=== PATIENT | male | born 1945 | race Caucasian/White ===

== ENCOUNTER → 2018-12-21 10:46 | Outpatient (CLI) | payer OTHER, SELFPAY ==
[2018-12-21 12:32] LABS: Alanine Aminotransferase 34 IU/L (21-72); Aspartate Aminotransferase 29 IU/L (17-59); Blood Urea Nitrogen 19 mg/dL (9-20); Carbon Dioxide 29 mmol/L (22-32); Chloride 97 mmol/L (98-107); Cholesterol 150 mg/dL (140-199); Estimated Glomerular Filt Rate > 60.0 mL/min (>60); Glucose 111 mg/dL (80-110); HDL Cholesterol 46 mg/dL (40-60); HEMOLYSIS < 15 (0-50); LDL Cholesterol Calculated 90 mg/dL (<100); Potassium 4.8 mmol/L (3.4-5.1); Sodium 136 mmol/L (137-145); Triglycerides 71 mg/dL (35-150)
[2018-12-21 12:59] LABS: Prostate Specific Antigen Scrn 0.729 ng/mL (0.1-4.0)
== END ==
PROVIDERS: PCP Internal Medicine; Visit Provider Internal Medicine
DX: I10 Essential (primary) hypertension (principal); Z12.5 Encounter for screening for malignant neoplasm of prostate; E78.5 Hyperlipidemia, unspecified
CPT/HCPCS: 36415; 80048; 80061; 84450; 84460; G0103

== ENCOUNTER → 2019-09-06 14:53 | Outpatient (CLI) | payer OTHER, SELFPAY ==
--- NOTE | 2019-09-06 | DI.ECHO.S_ITS ---
[place]---------+ [facility] +---------+ : : [address] : : : : [id number] : : : : Phone: [phone]+ Echocardiogram Report + + :Name: KY KERNS Study Date: 09/06/2019 Height: 70 in : :[facility] Weight: 172 lb : : Gender: Male BSA: 2.0 m2 : :: 1945 Age: 73 yrs BP: 138/76 mmHg: :Reason For Study: aortic ectasia : :Ordering Physician: Ulisses : :Jaya Guajardo Performed By: Cat Coates : :Referring: ULISSES GUAJARDO : + + Interpretation Summary The left ventricle is normal in size. The ejection fraction is estimated to be 65-70%. The right ventricle is normal size. The right ventricular systolic function is normal. There is a bioprosthetic aortic valve. The prosthetic aortic valve is well-seated. Ao V2 max: 284.5 cm/sec. Ao mean P.6 mmHg There is mild aortic regurgitation. There is mild tricuspid regurgitation. There is mild to moderate pulmonic regurgitation. Procedure: A two-dimensional transthoracic echocardiogram with color flow and Doppler was performed. The study quality was technically adequate. There is no prior echocardiogram noted for this patient. The patient was in sinus bradycardia with heart rates between 47-53 bpm during the exam. Left Ventricle: The left ventricle is normal in size. Proximal septal thickening is noted. There is no echo evidence for significant left ventricular outflow tract obstruction. There is no thrombus. The ejection fraction is estimated to be 65-70%. There are no focal wall motion abnormalities. MV E/A: 1.7 Med Peak E' Frank: 5.7 cm/sec E/E' med: 14.6. Right Ventricle: The right ventricle is normal size. The right ventricular systolic function is normal. Atria: Both atria are normal in size. The interatrial septum is intact with no evidence for an atrial septal defect. Mitral Valve: The mitral valve leaflets are mildly calcified. The mitral valve chordae are thickened and/or calcified. There is mild mitral annular calcification. There is mild mitral regurgitation. Aortic Valve: There is a bioprosthetic aortic valve. The prosthetic aortic valve is well-seated. Ao V2 max: 284.5 cm/sec. Ao mean P.6 mmHg. There is mild aortic regurgitation. Tricuspid Valve: Redundant tricuspid valve chordae seen. Tricuspid leaflets are thickened. There is mild tricuspid regurgitation. Pulmonary artery pressures cannot be estimated because of the lack of a measurable TR jet velocity. Pulmonic Valve: The pulmonic valve is not well seen, but is grossly normal. There is mild to moderate pulmonic regurgitation. Great Vessels: The aortic root is normal size. The ascending aorta is at the upper limits of normal in size. The ascending aorta is measuring 3.8cm. The IVC is of normal diameter and collapses greater than 50% with a sniff. This suggests a low right atrial pressure of 3 mm Hg. Pericardium/ Pleura There is no pericardial effusion. MMode/2D Measurements & Calculations LVIDd: 4.4 cm LVOT diam: 2.0 cm LVIDs: 2.9 cm Ao root diam: 3.5 cm FS: 34.5 % asc Aorta Diam: 3.8 cm EPSS: 0.43 cm Ao Arch Diam (Prox Trans): 3.2 cm IVSd: 0.97 cm LVPWd: 1.1 cm LV cr. diameter/BSA (cm/m^2): 2.2 LV sys. diameter/BSA (cm/m^2): 1.5 LA A2 area: 17.9 cm2 RA long axis: 4.8 cm LA A4 area: 18.0 cm2 RA area: 16.0 cm2 LA length (vol): 5.2 cm RA vol: 45.2 ml LA vol: 52.3 ml RA : 23.1 ml/m2 LA vol index: 26.7 ml/m2 IVC diam: 0.72 cm RVD1 (basal): 3.4 cm RVD2 (mid): 2.1 cm TAPSE: 1.5 cm Doppler Measurements & Calculations Ao V2 max: 284.5 cm/sec LVOT Max Frank: 88.6 cm/sec Ao V2 mean: 178.3 cm/sec LV V1 max P.1 mmHg Ao max P.4 mmHg LV V1 VTI: 23.2 cm Ao mean P.6 mmHg MINGO(I,D): 1.1 cm2 Ao V2 VTI: 64.2 cm MINGO(V,D): 0.95 cm2 sev ratio: 0.36 MINGO indexed to BSA (cm^2/m^2): 0.56 MV E max frank: 82.7 cm/sec TR max frank: 266.7 cm/sec MV A max frank: 49.9 cm/sec TR max P.5 mmHg MV E/A: 1.7 PA V2 max: 79.2 cm/sec Med Peak E' Frank: 5.7 cm/sec PA V2 mean: 56.1 cm/sec E/E' med: 14.6 PA mean P.4 mmHg Lat Peak E' Frank: 11.2 cm/sec PA pr(Accel): 48.5 mmHg E/E' lat: 7.4 E/e' average: 11.0 MV dec time: 0.22 sec MV P1/2t: 63.5 msec MV P1/2t max frank: 83.1 cm/sec SV(LVOT): 70.6 ml MVA(P1/2t): 3.5 cm2 Reading Physician:05:36 PM
== END ==
PROVIDERS: PCP Internal Medicine; Referring Provider Internal Medicine Cardiovascular Disease; Visit Provider Internal Medicine Cardiovascular Disease
DX: I08.3 Combined rheumatic disorders of mitral, aortic and tricuspid valves (principal); I77.810 Thoracic aortic ectasia; Z95.2 Presence of prosthetic heart valve
CPT/HCPCS: 93306

== ENCOUNTER → 2019-10-02 14:13 | Outpatient (CLI) | payer OTHER, SELFPAY ==
[2019-10-02 16:19] LABS: Blood Urea Nitrogen 16 mg/dL (9-20); Calcium 10.2 mg/dL (8.4-10.2); Carbon Dioxide 29 mmol/L (22-32); Chloride 100 mmol/L (98-107); Estimated Glomerular Filt Rate > 60.0 mL/min (>60); Glucose 101 mg/dL (80-110); HEMOLYSIS < 15 (0-50); Potassium 4.8 mmol/L (3.4-5.1); Sodium 137 mmol/L (137-145)
== END ==
PROVIDERS: PCP Internal Medicine; Referring Provider Nurse Practitioner; Visit Provider Nurse Practitioner
DX: I10 Essential (primary) hypertension (principal)
CPT/HCPCS: 36415; 80048

== ENCOUNTER → 2020-01-10 10:07 | Outpatient (CLI) | payer OTHER, SELFPAY ==
[2020-01-10 10:40] LABS: Alanine Aminotransferase 26 IU/L (<50); Albumin 4.3 g/dL (3.5-5.0); Albumin Globulin Ratio 1.5 (1.0-2.8); Alkaline Phosphatase 55 U/L (38-126); Aspartate Aminotransferase 30 IU/L (17-59); Bilirubin Total 0.5 mg/dL (0.2-1.3); Blood Urea Nitrogen 19 mg/dL (9-20); Calcium 9.4 mg/dL (8.4-10.2); Carbon Dioxide 30 mmol/L (22-32); Chloride 100 mmol/L (98-107); Cholesterol 121 mg/dL (140-199); Estimated Glomerular Filt Rate > 60.0 mL/min (>60); Globulin 2.9 g/dL (1.7-4.1); Glucose 114 mg/dL (80-110); HDL Cholesterol 33 mg/dL (40-60); HEMOLYSIS < 15 (0-50); LDL Cholesterol Calculated 73 mg/dL (<100); Potassium 4.3 mmol/L (3.4-5.1); Sodium 137 mmol/L (137-145); Total Protein 7.2 g/dL (6.3-8.2); Triglycerides 77 mg/dL (35-150)
== END ==
PROVIDERS: PCP Internal Medicine; Referring Provider Nurse Practitioner; Visit Provider Nurse Practitioner
DX: I10 Essential (primary) hypertension (principal); E78.5 Hyperlipidemia, unspecified
CPT/HCPCS: 36415; 80053; 80061

== ENCOUNTER → 2020-03-09 12:10 | Outpatient (CLI) | payer OTHER, SELFPAY ==
[2020-03-10 10:54] LABS: COVID19 Sendout Not Detected (Not Detect)
== END ==
PROVIDERS: PCP Internal Medicine; Visit Provider Nurse Practitioner
DX: Z11.59 Encounter for screening for other viral diseases (principal)
CPT/HCPCS: 87635

== ENCOUNTER 2020-03-12 08:29 | Day surgery (SDC) | payer OTHER, SELFPAY ==
--- NOTE | 2020-03-12 | PATH_ITS ---
[facility] Accession Number: [id number] . 01 Material submitted: . PART A: colon - CECUM POLYP PART B: colon - SIGMOID POLYP . 02 Diagnosis: A. Cecum, Polyp, Biopsy: Sessile serrated adenoma. . B. Sigmoid Colon, Polyp, Biopsy: Tubular adenoma. [facility] 03/13/2020 1625 Local . 02 Electronically signed: . Caroline Vigil MD, Pathologist NPI- [id number] . 01 Gross description: . Part A: CECUM POLYP: Received in formalin are 2 fragment(s) of juárez, soft tissue measuring 0.3 x 0.3 x 0.3 cm to 0.7 x 0.6 x 0.3 cm submitted entirely in 1 cassette(s) Part B: SIGMOID POLYP: Received in formalin are 2 fragment(s) of juárez, soft tissue measuring 0.2 x 0.1 x 0.1 cm to 0.4 x 0.3 x 0.2 cm submitted entirely in 1 cassette(s) /EDDIE 03/13/2020 0128 Local . 02 Pathologist provided ICD-10: D12.0, D12.5 . 02 CPT . 909644, [id number] Performed at: 01 [facility] [address], [place], [place] [id number] MD Valente Amato MD Phone: [phone] Performed at: 02 [facility] [address] [place], [place] [id number] MD Caroline Vigil MD Phone: [phone]
[2020-03-12] MEDS: SODIUM CHLORIDE 0.9% 1,000 ML 42 ML IV (08:55)
[2020-03-12 08:56] VITALS: BP 175/79; PULSE 52; RESP 16; TEMP 36.5; O2SAT 99; BMI 23.4
--- NOTE | 2020-03-12 09:31 | PM.HP.1 ---
History of Present Illness History of Present Illness Date Patient Seen: 03/12/20 Time Patient Seen: 09:31 Chief complaint: SDC Narrative: First screening colonoscopy. Patient History Medical History (Updated 03/12/20 @ 08:33 by Kay Reeves RN) CAD (coronary artery disease) (Acute) GERD (gastroesophageal reflux disease) (Acute) HTN (hypertension) (Acute) Osteoarthritis (Acute) PVD (peripheral vascular disease) (Acute) Surgical History (Updated 03/12/20 @ 08:33 by Kay Reeves RN) S/P AVR (aortic valve replacement) (Acute) Stented coronary artery (Acute) Family & Social History Social History: household members spouse Tobacco & Substance use: Smoking Status Never smoker alcohol intake current alcohol intake frequency 0-2 drinks per day Substance Use Type does not use Meds Home Medications and Allergies Home Medications Medication Instructions Recorded Confirmed Type amoxicillin 4 tab PO NOW 03/12/20 03/12/20 History aspirin 81 mg PO DAILY 03/12/20 03/12/20 History atorvastatin 80 mg PO DAILY 03/12/20 03/12/20 History lisinopril-hydrochlorothiazide 10 - 12.5 tab PO DAILY 03/12/20 03/12/20 History metoprolol tartrate 12.5 mg PO BID 03/12/20 03/12/20 History omeprazole 20 mg PO DAILY 03/12/20 03/12/20 History Allergies Allergy/AdvReac Type Severity Reaction Status Date / Time No Known Drug Allergies Allergy Verified 03/12/20 08:37 Exam Vital Signs (past 8 hours): - 03/12/20 08:56 Temperature 97.7 F Pulse Rate 52 L Respiratory Rate 16 Blood Pressure 175/79 H Pulse Oximetry 99 Oxygen Delivery Method Room Air Narrative Exam Narrative: Oropharynx free of lesions Chest clear to auscultation percussion Cardiac exam reveals no S3 or murmur Assessment & Plan Assessment & Plan narrative: Need for screening colonoscopy. Risks, benefits, alternatives have been explained. Patient is already taken oral amoxicillin 2 g at home.
[2020-03-12] MEDS: fentaNYL 250 MCG/5 ML INJ IV (09:32)
[2020-03-12] MEDS: MIDAZOLAM 5 MG/5 ML VIAL IV (09:33)
--- NOTE | 2020-03-12 09:33 | PM.OP.ENDO ---
Operative Date/Time/Diagnoses Date of procedure: 03/12/20 Time of procedure: 09:33 Pre-op diagnosis: See indication and findings Procedure & Clinicians Study performed: Colonoscopy Same procedure as scheduled: Yes Indications: Screening Surgeon: Turner Lopez Procedure Notes Procedure in detail: After informed consent was obtained the patient placed left lateral decubitus position. The video colonoscope was introduced the rectum slowly advanced cecum. On slow withdrawal mucosa was carefully examined. Preparation was good. The scope was removed. The patient tolerated procedure well. Blood loss none Complications none Sedation Total sedation time 20 minutes Versed 4 mg fentanyl 100 mg IV titration Findings 1. A mm sessile polyp in the cecum away from the appendiceal orifice. This was cold snared removed completely. 2. 5 mm polyp in the sigmoid colon Jumbo biopsy removed completely 3. Scattered sigmoid and left-sided diverticulosis 4. Otherwise negative colonoscopy to cecum Patient should have follow-up colonoscopy in 5-7 years.
[2020-03-12 09:56] VITALS: BP 130/73; PULSE 57; RESP 16; TEMP 37.3; O2SAT 93
[2020-03-12 10:02] VITALS: BP 159/87; PULSE 58; RESP 13; TEMP 36.6; O2SAT 97
--- NOTE | 2020-03-12 10:05 | PM.HP.1 ---
History of Present Illness History of Present Illness Chief complaint: [facility] Narrative: First screening colonoscopy. Patient History Medical History (Updated 03/12/20 @ 08:33 by Kay Reeves RN) CAD (coronary artery disease) (Acute) GERD (gastroesophageal reflux disease) (Acute) HTN (hypertension) (Acute) Osteoarthritis (Acute) PVD (peripheral vascular disease) (Acute) Surgical History (Updated 03/12/20 @ 08:33 by Kay Reeves RN) S/P AVR (aortic valve replacement) (Acute) Stented coronary artery (Acute) Family & Social History Social History: household members spouse Tobacco & Substance use: Smoking Status Never smoker alcohol intake current alcohol intake frequency 0-2 drinks per day Substance Use Type does not use Meds Home Medications and Allergies Home Medications Medication Instructions Recorded Confirmed Type amoxicillin 4 tab PO NOW 03/12/20 03/12/20 History aspirin 81 mg PO DAILY 03/12/20 03/12/20 History atorvastatin 80 mg PO DAILY 03/12/20 03/12/20 History lisinopril-hydrochlorothiazide 10 - 12.5 tab PO DAILY 03/12/20 03/12/20 History metoprolol tartrate 12.5 mg PO BID 03/12/20 03/12/20 History omeprazole 20 mg PO DAILY 03/12/20 03/12/20 History Allergies Allergy/AdvReac Type Severity Reaction Status Date / Time No Known Drug Allergies Allergy Verified 03/12/20 08:37 Exam Vital Signs (past 8 hours): - 03/12/20 08:56 03/12/20 09:56 03/12/20 10:02 Temperature 97.7 F 99.1 F 97.8 F Pulse Rate 52 L 57 L 58 L Respiratory Rate 16 16 13 Blood Pressure 175/79 H 130/73 159/87 H Pulse Oximetry 99 93 97 Oxygen Delivery Method Room Air Narrative Exam Narrative: Oropharynx free of lesions Chest clear to auscultation percussion Cardiac exam reveals no S3 or murmur Assessment & Plan Assessment & Plan narrative: 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 Need for banding. Risks, benefits, alternatives have been explained. Intermittent diarrhea need for small-bowel biopsies to rule out celiac disease
[2020-03-12 10:07] VITALS: BP 154/85; PULSE 53; RESP 16; TEMP 36.5; O2SAT 98
--- NOTE | 2020-03-12 10:08 | PM.OP.ENDO ---
Operative Date/Time/Diagnoses Date of procedure: 03/12/20 Time of procedure: 10:08 Pre-op diagnosis: See indication and findings Procedure & Clinicians Study performed: EGD Same procedure as scheduled: Yes Indications: Esophageal varices and diarrhea Surgeon: Turner Lopez Procedure Notes Procedure in detail: After informed consent was obtained the patient was placed in left lateral decubitus position. The video upper scope was placed into the oropharynx and with the patient help salt and the esophagus. The esophagus, stomach, duodenum were carefully examined. On withdrawal, retroflexed view the GE junction was performed. The scope was removed. The patient tolerated procedure well. Blood loss none Complications none Sedation Total sedation time 18 minutes Versed 4 mg fentanyl 100 mg IV titration Findings 1. Three columns of varices unable to be flattened from midesophagus down to the GE junction at 40 cm. As a last act 4 bands were placed on the 3 columns. 2. Significant gastropathy of portal hypertension throughout the stomach 3. Very intense striped erythema in the antrum that seemed to bed raised. This could be GAVE or it could be barely gastritis exaggerated by his gastropathy of portal hypertension. 4. Duodenal bulb and sweep with erythema. Biopsies taken to rule out celiac. Patient should be in touch with me within 2-3 weeks. Will not will have to discuss further workup of his loose stools but follow-up banding in 6-8 weeks.
[2020-03-12 10:11] VITALS: BP 130/77; PULSE 50; RESP 12; TEMP 36.5; O2SAT 97
[2020-03-12 10:30] VITALS: BP 115/59; PULSE 45; RESP 15; TEMP 36.1; O2SAT 98
--- NOTE | 2020-03-12 10:45 | SUR.PHASEII ---
Patient had mild nausea after moving from phase 1 to phase 2. Given emesis bag, but denied need for medication or other intervention. Given time to relax and patient now states that nausea is gone. Vital signs stable. Discharged home with per orders.
--- NOTE | 2020-03-12 12:12 | P.OP.ENDO_ITS ---
Operative Date/Time/Diagnoses Date of procedure: 03/12/20 Time of procedure: 12:12 Pre-op diagnosis: See indication and findings Procedure & Clinicians Study performed: Colonoscopy Same procedure as scheduled: Yes Indications: First colonoscopy. Surgeon: Turner Lopez Procedure Notes Procedure in detail: After informed consent was obtained the patient was placed in left lateral decubitus position. The video colonoscope was introduced the rectum slowly advanced to cecum. Preparation was good. On slow withdrawal mucosa was carefully examined. The scope was removed. The patient tolerated procedure well. Blood loss none Complications none Sedation Total sedation time 18 minutes Versed 4 mg fentanyl 100 mg IV titration Findings 1. 8 mm polyp deep in the cecum away from the appendiceal orifice cold snared and removed completely 2. 5 mm polyp in the descending colon Jumbo biopsy removed completely 3. Scattered diverticula 4. Otherwise negative colonoscopy to cecum We will be in touch regarding biopsies but he will almost certainly need follow- up colonoscopy in 5-7 years
== END 2020-03-12 10:40 | disposition home or self-care (01) ==
PROVIDERS: PCP Internal Medicine; Referring Provider Physician Assistant Medical; Visit Provider Internal Medicine Gastroenterology
PROC: 0DJD8ZZ Inspection of Lower Intestinal Tract, Via Natural or Artificial Opening Endoscopic (ICD-10-PCS; CPT 45378; principal; 2020-03-12 09:00)
DX: Z12.11 Encounter for screening for malignant neoplasm of colon (principal); K57.30 Diverticulosis of large intestine without perforation or abscess without bleeding; D12.0 Benign neoplasm of cecum; D12.5 Benign neoplasm of sigmoid colon
CPT/HCPCS: 45385; J2250; J3010

== ENCOUNTER 2020-05-25 18:34 | Emergency (ER) | payer OTHER, SELFPAY ==
[2020-05-25 18:38] VITALS: BP 179/93; PULSE 61; RESP 18; TEMP 35.7; O2SAT 99; BMI 23.6
--- NOTE | 2020-05-25 18:42 | DI.RAD.S_ITS ---
PROCEDURE: XR KNEE RT 3V INDICATIONS: fall down steps 2 TECHNIQUE: 3 views of the knee were acquired. COMPARISON: None. FINDINGS: Bones: There is a linear calcification along the superior aspect of the patella suspicious for a small avulsion fragment. Elsewhere, no definite fracture or dislocation. No suspicious bony lesions. Soft tissues: There is a moderate-sized joint effusion. IMPRESSION: 1. Linear calcification along the superior aspect of the patella is nonspecific but may represent a small avulsion fragment. The differential includes dystrophic calcifications along the quadriceps tendon. Recommend correlation with clinical history and exam. 2. Moderate-sized joint effusion. Dictated by: Valente Kilpatrick M.D. on 05/25/2020 at 19:05 Approved by: Valente Kilpatrick M.D. on 05/25/2020 at 19:07
--- NOTE | 2020-05-25 19:36 | ED.LOWEXIN ---
HPI - Extremity Injury (Lower) General Chief Complaint: Extremity Injury, Lower Stated Complaint: right knee cap injury, thinks Fx Time Seen by Provider: 05/25/20 19:03 Source: patient and family Mode of arrival: Family Vehicle Limitations: no limitations History of Present Illness HPI Narrative: Patient here with . Complains of right knee pain and unable to flex and extend. Patient walking out his front porch it was dark. And tripped and landed on his right knee. Denies denies any other injury or pain. No numbness or tingling or weakness to the leg. Skin is intact. Related Data Home Medications Medication Instructions Recorded Confirmed amoxicillin 4 tab PO NOW 03/12/20 03/12/20 aspirin 81 mg PO DAILY 03/12/20 03/12/20 atorvastatin 80 mg PO DAILY 03/12/20 03/12/20 lisinopril-hydrochlorothiazide 10 - 12.5 tab PO DAILY 03/12/20 03/12/20 metoprolol tartrate 12.5 mg PO BID 03/12/20 03/12/20 omeprazole 20 mg PO DAILY 03/12/20 03/12/20 Allergies Allergy/AdvReac Type Severity Reaction Status Date / Time No Known Drug Allergies Allergy Verified 05/25/20 18:41 Review of Systems Review of Systems Narrative: GENERAL: Denies chills, fatigue, malaise, fever, sweats. HEENT: Denies sinus pain, ear pain, sore throat, difficulty swallowing RESPIRATORY: Denies dyspnea, cough CARDIOVASCULAR: Denies chest pain, palpitations, edema, GASTROINTESTINAL: Denies nausea, vomiting, abdominal pain, diarrhea, constipation, melena. : Denies dysuria, frequency, hematuria MUSCULOSKELETAL: Complains muscle or bony pain SKIN: Denies rash, skin lesions NEUROLOGIC: Denies weakness, headache, numbness, change in speech, confusion PSYCHIATRIC: No SI or HI or hallucinations ROS Unobtainable: All systems reviewed & are unremarkable except as noted in HPI and below Patient History Medical History CAD (coronary artery disease) (Acute) GERD (gastroesophageal reflux disease) (Acute) HTN (hypertension) (Acute) Osteoarthritis (Acute) PVD (peripheral vascular disease) (Acute) Surgical History S/P AVR (aortic valve replacement) (Acute) Stented coronary artery (Acute) Social History household members: spouse Smoking Status: Never smoker alcohol intake: current Smoking Status: Never smoker alcohol intake frequency: 0-2 drinks per day Substance Use Type: does not use Exam Narrative Exam Narrative: GENERAL: patient appears stated age. Well-nourished, well-developed patient, in no distress, not toxic not dyspneic HEAD: Normocephalic. n NECK: Trachea midline. Non tender CARDIOVASCULAR: Regular rate and rhythm without murmurs, gallops, or rubs. RESPIRATORY: Clear to auscultation. Breath sounds equal bilaterally. No wheezes, rales, or rhonchi. EXTREMITIES: Examination right lower extremity. Leg foot warm soft pink strong pedal pulse light touch intact to foot and toes. Able to actively flex and extend at the ankle. Nontender hip. There is a deformity/deficit at the infrapatellar area. Nontender proximal tibia, nontender distal femur. Skin is intact. Patella is midline but slightly high riding. Patient unable to actively flex or extend at the knee. In the 90 degree patient is unable to extend to 180?. Not due to pain. NEURO: AOx4. SKIN: Warm and dry PSYCH: Not anxious, is cooperative Initial Vital Signs Initial Vital Signs: Vital Signs Temperature 96.3 F L 05/25/20 18:38 Pulse Rate 61 05/25/20 18:38 Respiratory Rate 18 05/25/20 18:38 Blood Pressure 179/93 H 05/25/20 18:38 Pulse Oximetry 99 05/25/20 18:38 Procedures Orthopedic Splinting/Casting Injury #1: Side: right Lower Extremity Injury Location: knee Lower Extremity Immobilizer: knee immobilizer Other Orthopedic Equipment: crutches Post splinting neuro exam: intact Post splinting vascular exam: intact Placed by: Nursing Course Orders Ordered: ED Orders 05/25/20 18:42 XR knee RT 3V Stat Reevaluation(s) Reevaluation #1: Spoke with patient regarding x-ray results and physical exam and my discussion with Dr. Moreau, orthopedist. No MRI available at this time. Do not do CT scan it will not be optimal. Dr. Moreau in the department now. Place in knee immobilizer crutches and call the office in the morning for follow-up and they will provide MRI scheduling Time: 19:38 Consultations Consultation #1: Spoke with orthopedist dr moreau, place patient in knee immobilizer crutches and call office in the morning, he will provide MRI for patient. Time: 19:38 Vital Signs Vital signs: Vital Signs - 8 hr 05/25/20 18:38 Temperature 96.3 F L Pulse Rate 61 Respiratory Rate 18 Blood Pressure 179/93 H Pulse Oximetry 99 MDM - Extremity Injury (Lower) Differential Diagnosis Differential diagnosis: Likely acute internal derangement of knee Imaging Data Extremity x-ray #1: Radiologist's Impression: [address] [address] XRay Report Signed Patient: Cristiane EncinasnMR#: [id number] : 1946Acct:[id number] Age/Sex: 74 / MDate of Service: 05/25/20 Loc: ED Accession Number: [id number] Procedure: XR knee RT 3V Ordering Provider: Narayan Gutierrez MD PROCEDURE: XR KNEE RT 3V INDICATIONS: fall down steps 2 TECHNIQUE: 3 views of the knee were acquired. COMPARISON: None. FINDINGS: Bones: There is a linear calcification along the superior aspect of the patella suspicious for a small avulsion fragment. Elsewhere, no definite fracture or dislocation. No suspicious bony lesions. Soft tissues: There is a moderate-sized joint effusion. IMPRESSION: 1. Linear calcification along the superior aspect of the patella is nonspecific but may represent a small avulsion fragment. The differential includes dystrophic calcifications along the quadriceps tendon. Recommend correlation with clinical history and exam. 2. Moderate-sized joint effusion. Dictated by: Valente Kilpatrick M.D. on 05/25/2020 at 19:05 Approved by: Valente Kilpatrick M.D. on 05/25/2020 at 19:07 [facility] Narrative Medical decision making narrative: Appropriate for discharge home. Reviewed with orthopedist. Nontender proximal tibia and fibula. Neurovascularly intact. Patient and agree with treatment plan. Pain is controlled. Patient states he will take ibuprofen or Tylenol at home. Tolerated knee immobilizer and crutches. Discharge Plan Departure Patient Disposition: Home Clinical Impression: Patellar tendon rupture Qualifiers: Encounter type: initial encounter Laterality: right Qualified Code(s): S86.811A - Strain of other muscle(s) and tendon(s) at lower leg level, right leg, initial encounter Instructions: How to Use Crutches, How to Use a Knee Immobilizer Activity Restrictions/Additional Instructions: Keep in knee immobilizer when ambulating. Use crutches when ambulating. Call provided orthopedic office in the morning for office recheck this week and to schedule MRI of the knee with the office. Return if worsening questions or concerns. Prescriptions: No Action atorvastatin 80 mg tablet 80 mg PO DAILY RF: 0 lisinopril-hydrochlorothiazide 10-12.5 mg tablet 10 - 12.5 tab PO DAILY RF: 0 metoprolol tartrate 25 mg tablet 12.5 mg PO BID RF: 0 omeprazole 20 mg Tablet,Delayed Release (Dr/Ec) 20 mg PO DAILY RF: 0 aspirin 81 mg Tablet,Delayed Release (Dr/Ec) 81 mg PO DAILY RF: 0 amoxicillin 4 tab PO NOW RF: 0 Referrals: Scott Moreau MD [Physician] - 05/26/20 Amparo Lemons MD [Primary Care Provider] -
--- NOTE | 2020-05-25 19:50 | ED_ITS ---
HPI - Extremity Injury (Lower) General Chief Complaint: Extremity Injury, Lower Stated Complaint: right knee cap injury, thinks Fx Time Seen by Provider: 05/25/20 19:03 Source: patient and family Mode of arrival: Family Vehicle Limitations: no limitations History of Present Illness HPI Narrative: Patient here with . Was walking down dark steps and slipped and fell onto right knee. Denies any other injuries. Unable to extend and flex at the knee. Related Data Home Medications Medication Instructions Recorded Confirmed amoxicillin 4 tab PO NOW 03/12/20 03/12/20 aspirin 81 mg PO DAILY 03/12/20 03/12/20 atorvastatin 80 mg PO DAILY 03/12/20 03/12/20 lisinopril-hydrochlorothiazide 10 - 12.5 tab PO DAILY 03/12/20 03/12/20 metoprolol tartrate 12.5 mg PO BID 03/12/20 03/12/20 omeprazole 20 mg PO DAILY 03/12/20 03/12/20 Allergies Allergy/AdvReac Type Severity Reaction Status Date / Time No Known Drug Allergies Allergy Verified 05/25/20 18:41 Review of Systems Review of Systems Narrative: GENERAL: Denies chills, fatigue, malaise, fever, sweats. MUSCULOSKELETAL: Complains muscle or bony pain SKIN: Denies rash, skin lesions NEUROLOGIC: Denies weakness, headache, numbness, change in speech, confusion PSYCHIATRIC: No SI or HI or hallucinations ROS Unobtainable: All systems reviewed & are unremarkable except as noted in HPI and below Patient History Medical History CAD (coronary artery disease) (Acute) GERD (gastroesophageal reflux disease) (Acute) HTN (hypertension) (Acute) Osteoarthritis (Acute) PVD (peripheral vascular disease) (Acute) Surgical History S/P AVR (aortic valve replacement) (Acute) Stented coronary artery (Acute) Social History household members: spouse Smoking Status: Never smoker alcohol intake: current Smoking Status: Never smoker alcohol intake frequency: 0-2 drinks per day Substance Use Type: does not use Exam Narrative Exam Narrative: GENERAL: patient appears stated age. Well-nourished, well- developed patient, in no distress, not toxic not dyspneic HEAD: Normocephalic. EXTREMITIES: No gross deformities. Examination right lower extremity, foot is warm soft and pink., ankle nontender able to flex extend fully. Foot warm soft and pink strong pedal pulse with light touch intact to foot and toes. Wiggles toes. Nontender hip. Need to toes exposed. Slight drop-off deformity inferior to the patella on the right side compared to left. Mild muscle tenderness to the suprapatellar area. Patient unable to actively flex and extend the knee, not due to pain. NEURO: AOx4. SKIN: Warm and dry PSYCH: Not anxious, is cooperative Initial Vital Signs Initial Vital Signs: Vital Signs Temperature 96.3 F L 05/25/20 18:38 Pulse Rate 61 05/25/20 18:38 Respiratory Rate 18 05/25/20 18:38 Blood Pressure 179/93 H 05/25/20 18:38 Pulse Oximetry 99 05/25/20 18:38 Procedures Orthopedic Splinting/Casting Injury #1: Side: right Lower Extremity Injury Location: knee Lower Extremity Immobilizer: knee immobilizer Other Orthopedic Equipment: crutches Post splinting neuro exam: intact Post splinting vascular exam: intact Placed by: Nursing Course Course Course Narrative: Reviewed results with patient and and they understand and agree with treatment follow-up Orders Ordered: ED Orders 05/25/20 18:42 XR knee RT 3V Stat Reevaluation(s) Reevaluation #1: Patient tolerated knee immobilizer without any difficulty Time: 19:00 Consultations Consultation #1: Spoke with Dr. Moreau, he is in the department, orthopedics, at this time discharge patient home. Would not advise getting CT scan as patient needs MRI. Place in knee immobilizer and crutches and he will see patient this week and scheduled for MRI Time: 19:00 Vital Signs Vital signs: Vital Signs - 8 hr 05/25/20 18:38 05/25/20 20:13 Temperature 96.3 F L Pulse Rate 61 57 L Respiratory Rate 18 12 Blood Pressure 179/93 H 123/68 Pulse Oximetry 99 97 MDM - Extremity Injury (Lower) Differential Diagnosis Differential diagnosis: Likely acute internal derangement of knee and other (Knee fracture/patellar fracture/tendon rupture) Imaging Data Extremity x-ray #1: Radiologist's Impression: [address] [address] XRay Report Signed Patient: Cristiane EncinasnMR#: [id number] : 7Acct:[id number] Age/Sex: 74 / MDate of Service: 05/25/20 Loc: ED Accession Number: [id number] Procedure: XR knee RT 3V Ordering Provider: Narayan Gutierrez MD PROCEDURE: XR KNEE RT 3V INDICATIONS: fall down steps 2 TECHNIQUE: 3 views of the knee were acquired. COMPARISON: None. FINDINGS: Bones: There is a linear calcification along the superior aspect of the patella suspicious for a small avulsion fragment. Elsewhere, no definite fracture or dislocation. No suspicious bony lesions. Soft tissues: There is a moderate-sized joint effusion. IMPRESSION: 1. Linear calcification along the superior aspect of the patella is nonspecific but may represent a small avulsion fragment. The differential includes dystrophic calcifications along the quadriceps tendon. Recommend correlation with clinical history and exam. 2. Moderate-sized joint effusion. Dictated by: Valente Kilpatrick M.D. on 05/25/2020 at 19:05 Approved by: Valente Kilpatrick M.D. on 05/25/2020 at 19:07 [facility] Narrative Medical decision making narrative: Appropriate for discharge home. Reviewed with orthopedist in the department, dr moreau, was seeing another pt here..is oncall Discharge Plan Departure Patient Disposition: Home Clinical Impression: Patellar tendon rupture Qualifiers: Encounter type: initial encounter Laterality: right Qualified Code(s): S86.811A - Strain of other muscle(s) and tendon(s) at lower leg level, right leg, initial encounter Discharge Date/Time: 05/25/20 20:16 Instructions: How to Use Crutches, How to Use a Knee Immobilizer Activity Restrictions/Additional Instructions: Keep in knee immobilizer when ambulating. Use crutches when ambulating. Call provided orthopedic office in the morning for office recheck this week and to schedule MRI of the knee with the office. Return if worsening questions or concerns. Prescriptions: No Action atorvastatin 80 mg tablet 80 mg PO DAILY RF: 0 lisinopril-hydrochlorothiazide 10-12.5 mg tablet 10 - 12.5 tab PO DAILY RF: 0 metoprolol tartrate 25 mg tablet 12.5 mg PO BID RF: 0 omeprazole 20 mg Tablet,Delayed Release (Dr/Ec) 20 mg PO DAILY RF: 0 aspirin 81 mg Tablet,Delayed Release (Dr/Ec) 81 mg PO DAILY RF: 0 amoxicillin 4 tab PO NOW RF: 0 Referrals: Scott Moreau MD [Physician] - 05/26/20 Amparo Lemons MD [Primary Care Provider] -
--- NOTE | 2020-05-25 20:11 | PC.NURSE ---
patellar tendon above the knee the knee appeared to be ruptured and needs more follow up
[2020-05-25 20:13] VITALS: BP 123/68; PULSE 57; RESP 12; O2SAT 97
== END 2020-05-25 20:16 | disposition home or self-care (01) ==
PROVIDERS: Emergency Provider Emergency Medicine; PCP Internal Medicine
DX: S86.811A Strain of other muscle(s) and tendon(s) at lower leg level, right leg, initial encounter (principal); W10.9XXA Fall (on) (from) unspecified stairs and steps, initial encounter
CPT/HCPCS: 73562; 99283

== ENCOUNTER → 2020-05-26 15:29 | Outpatient (CLI) | payer OTHER, SELFPAY ==
--- NOTE | 2020-05-26 | DI.MRI.S_ITS ---
PROCEDURE: MR KNEE RT WO CON INDICATIONS: RUPTURE OF RIGHT PATELLAR TENDON TECHNIQUE: Noncontrast sagittal PD fast spin echo and T2 fast spin echo with fat saturation, sagittal 3-D FLASH with fat saturation; coronal T1 spin echo and PD fast spin echo with fat saturation, and axial PD fast spin echo with fat saturation through the knee. COMPARISON: [facility], CR, XR KNEE RT 3V, 05/25/2020, 18:48. FINDINGS: Image quality: Excellent. Menisci: There is mild degenerative signal within the body and posterior horn of the lateral meniscus as well as the posterior horn of the medial meniscus with mild extension to the inferior articular surfaces suggestive of minimal degenerative tearing. The meniscal root ligaments appear intact. Cruciate ligaments: The anterior and posterior cruciate ligaments appear intact. Medial structures: The medial collateral ligament appears intact. The semimembranosus tendon insertions and meniscocapsular junction appear intact. Visualized portions of the pes anserinus tendons appear intact without associated bursal fluid collections. Lateral structures: The lateral collateral ligament, long and short heads of the biceps femoris tendon appear intact. The popliteus tendon appears intact. Iliotibial band appears normal. Anterior structures: There is a complete or near-complete rupture of the quadriceps tendon. There are a possible few residual intact fibers. There is associated retraction of the majority of the quadriceps tendon by approximately 2.5 cm with an associated fluid gap. There is extensive associated soft tissue edema and fluid anteriorly. There is mild lateral shift of the patella. The patellar tendon appears intact. Bones and cartilage: No bone marrow contusions or fractures. There is mild osteophytosis. Moderate cartilage thinning is demonstrated in the patellofemoral compartment with associated chondral fissuring and foci of subchondral edema. In the medial medial compartment, there is mild cartilage thinning with chondral fissuring along the medial femoral condyle associated with mild subchondral edema. There is mild cartilage thinning in the lateral compartment with mild chondral fissuring associated with mild subchondral edema. Joint space: There is a moderate joint effusion which is heterogeneous and appears contiguous with fluid at the site of patellar tendon rupture likely representing a hemarthrosis. No Arzola's cyst. IMPRESSION: 1. Complete or near-complete rupture of the quadriceps tendon with tendon retraction and a fluid gap as described. Extensive soft tissue edema and fluid demonstrated anteriorly contiguous with a moderate size hemarthrosis. 2. Mild to moderate tricompartmental osteoarthritic changes. 3. Minimal degenerative tearing of the medial and lateral menisci. Dictated by: Valente Kilpatrick M.D. on 05/26/2020 at 17:02 Approved by: Valente Kilpatrick M.D. on 05/26/2020 at 17:13
== END ==
PROVIDERS: PCP Internal Medicine; Referring Provider Orthopaedic Surgery Adult Reconstructive Orthopaedic Surgery; Visit Provider Orthopaedic Surgery Adult Reconstructive Orthopaedic Surgery
DX: S76.111A Strain of right quadriceps muscle, fascia and tendon, initial encounter (principal); X58.XXXA Exposure to other specified factors, initial encounter
CPT/HCPCS: 73721

== ENCOUNTER → 2020-05-28 11:26 | Outpatient (CLI) | payer OTHER, SELFPAY ==
[2020-05-28 14:00] LABS: Add Manual Diff / Slide Review NO; Basophils Absolute Auto 100 /uL (0-100); Basophils Percent Auto 0.8 % (0-2); Eosinophils Absolute Auto 100 /uL (0-450); Hemoglobin 13.2 g/dL (13.5-17.5); Lymphocytes Absolute Auto 2200 /uL (1100-4500); Lymphocytes Percent Auto 22.4 % (25-40); Mean Corpuscular HGB Conc 33.8 % (30-36); Mean Corpuscular Hemoglobin 30.5 PG (26-34); Mean Corpuscular Volume 90.2 fL (80-100); Monocytes Absolute Auto 900 /uL (0-900); Monocytes Percent Auto 9.3 % (3-14); Neutrophils Absolute Auto 6700 /uL (1500-7000); Neutrophils Percent Auto 66.5 % (50-75); Platelet Count 248 X10^3/uL (150-400); Red Blood Cell Count 4.33 X10^6/uL (4.5-5.9); Red Cell Distribution Width 13.1 % (11.6-14.8)
== END ==
PROVIDERS: PCP Internal Medicine; Referring Provider Orthopaedic Surgery Adult Reconstructive Orthopaedic Surgery; Visit Provider Orthopaedic Surgery Adult Reconstructive Orthopaedic Surgery
DX: Z01.818 Encounter for other preprocedural examination (principal); Z01.812 Encounter for preprocedural laboratory examination
CPT/HCPCS: 36415; 85025; 93005

== ENCOUNTER → 2020-06-03 14:59 | Outpatient (CLI) | payer OTHER, SELFPAY ==
--- NOTE | 2020-06-03 | DI.RAD.S_ITS ---
PROCEDURE: XR CHEST 2V INDICATIONS: Wheezing TECHNIQUE: 2 views of the chest were acquired. COMPARISON: None. FINDINGS: Surgical changes and devices: Cardiac valve replacement, prior sternotomy.. Lungs and pleura: Lungs are clear. No pleural effusions or pneumothorax. Mediastinum: Mediastinal contours are normal. Heart size is normal. Bones and chest wall: No suspicious bony abnormalities. Soft tissues appear unremarkable. IMPRESSION: Source of wheezing is not seen. Prior heart surgery but no sign of cardiomegaly or CHF. Dictated by: Kris Kinsey M.D. on 06/03/2020 at 16:46 Approved by: Kris Kinsey M.D. on 06/03/2020 at 16:46
[2020-06-03 15:56] LABS: Add Manual Diff / Slide Review NO; Basophils Absolute Auto 100 /uL (0-100); Basophils Percent Auto 0.9 % (0-2); Eosinophils Absolute Auto 200 /uL (0-450); Eosinophils Percent Auto 3.4 % (2-4); Hematocrit 35.3 % (41-53); Hemoglobin 11.7 g/dL (13.5-17.5); Lymphocytes Absolute Auto 1200 /uL (1100-4500); Lymphocytes Percent Auto 17.9 % (25-40); Mean Corpuscular HGB Conc 33.2 % (30-36); Mean Corpuscular Hemoglobin 29.9 PG (26-34); Mean Corpuscular Volume 90.1 fL (80-100); Monocytes Absolute Auto 800 /uL (0-900); Monocytes Percent Auto 12.1 % (3-14); Neutrophils Absolute Auto 4500 /uL (1500-7000); Neutrophils Percent Auto 65.7 % (50-75); Platelet Count 412 X10^3/uL (150-400); Red Blood Cell Count 3.92 X10^6/uL (4.5-5.9); White Blood Cell Count 6.8 X10^3/uL (4.5-11.0)
== END ==
PROVIDERS: PCP Internal Medicine; Referring Provider Internal Medicine; Visit Provider Internal Medicine
DX: R06.2 Wheezing (principal); R05 Cough
CPT/HCPCS: 36415; 71046; 85025

== ENCOUNTER → 2022-05-10 13:53 | Outpatient (CLI) | payer MEDICARE, SELFPAY ==
[2022-05-10 18:20] LABS: Thyroid Stimulating Hormone 1.96 uIU/mL (0.47-4.68)
== END ==
PROVIDERS: PCP Internal Medicine; Referring Provider Internal Medicine Cardiovascular Disease; Visit Provider Internal Medicine Cardiovascular Disease
DX: R53.83 Other fatigue (principal); Z13.21 Encounter for screening for nutritional disorder
CPT/HCPCS: 36415; 84443

== ENCOUNTER → 2022-07-22 09:11 | Outpatient (CLI) | payer OTHER, SELFPAY ==
--- NOTE | 2022-07-22 09:13 | DI.US.S_ITS ---
PROCEDURE: US CAROTID DOPPLER BI INDICATIONS: Atherosclerotic heart disease TECHNIQUE: Color and pulse Doppler interrogation was performed of both carotid systems, with image documentation and velocity measurements. COMPARISON: None. FINDINGS: Stenosis calculations are based on SRU (Society of Radiologists in Ultrasound) criteria. Right side: Brachial blood pressure: 171/84 mm Hg. Common carotid artery peak systolic velocity: 53 cm/sec. Internal carotid artery peak systolic velocity: 103 cm/sec. Internal carotid artery end diastolic velocity: 31 cm/sec. External carotid artery peak systolic velocity: 80 cm/sec. ICA/CCA peak systolic ratio: 1.9. Shanks scale imaging description: Mild atherosclerotic calcifications are seen in proximal right internal carotid artery. Percent internal carotid artery stenosis: Less than 50%. Vertebral artery: Flow direction is antegrade. Left side: Brachial blood pressure: 163/88 mm Hg. Common carotid artery peak systolic velocity: 66 cm/sec. Internal carotid artery peak systolic velocity: 65 cm/sec. Internal carotid artery end diastolic velocity: 32 cm/sec. External carotid artery peak systolic velocity: 52 cm/sec. ICA/CCA peak systolic ratio: 1.6. Shanks scale imaging description: Mild atherosclerotic plaques are noted involving carotid bulb and origin of left internal carotid artery. Percent internal carotid artery stenosis: Less than 50% . Vertebral artery: Flow direction is antegrade. IMPRESSION: Finding is consistent with less than 50% stenosis in bilateral proximal internal carotid arteries. Dictated by: Jessee Em M.D. on 07/22/2022 at 12:28 Approved by: Jessee Em M.D. on 07/22/2022 at 12:47
--- NOTE | 2022-07-22 09:14 | DI.NM.S_ITS ---
PROCEDURE: NM JENNIFER PERF SPECT REST & STR Rest and exercise myocardial perfusion SPECT with gated imaging and ejection fraction RADIOPHARMACEUTICAL: 12.2 mCi Tc-99m sestamibi IV at rest and 25.6 mCi Tc-99m sestamibi IV at peak exercise. A one day-protocol was performed. INDICATIONS: Atherosclerotic heart disease TECHNIQUE: Radiopharmaceutical was injected at peak stress test, and also at rest. SPECT images were obtained. SPECT myocardial perfusion images were displayed in short axis, horizontal long axis, and vertical long axis views. Gated images were reviewed using Touch of Classic software. COMPARISON: None. CARDIAC STRESS: A standard Dragan treadmill exercise tolerance test was performed by the patient under the supervision of an attending staff. The patient exercised for 5 minutes and 43 seconds; functional aerobic impairment (ANKUR) is +4%. Hemodynamic data: There is normal blood pressure and heart rate response to exercise stress. Patient achieved 88% of maximum predicted heart rate at peak exercise. Symptoms: Patient denied chest pain during exercise. EKG: Very mild horizontal ST depressions in the V5 lead; frequent PVCs during recovery. FINDINGS: Raw data: There is good myocardial labeling by radiotracer. No significant motion artifacts. Girk-mp-oxdfd ratio is 0.32 (normal is less than 0.38 for sestamibi tracer, and less than 0.50 for thallium tracer). Left ventricle function: Gated images demonstrate normal left ventricle wall thickening. No segmental wall motion abnormality. No transient ischemic dilation; TID is 0.68 (normal less than 1.3). The left ventricle resting end-diastolic volume is 106 mL. Left ventricle stress ejection fraction is 76%; normal values are above 45%. Myocardial perfusion: There is normal distribution of activity in the left and right ventricular myocardium. No fixed or reversible perfusion defects. IMPRESSION: Low risk, normal treadmill nuclear stress test 1) No perfusion evidence of ischemia or infarction. 2) Normal left ventricular size, wall motion, and systolic function (EF post stress 76%). 3) Very mild horizontal ST depressions in the V5 lead during recovery. These changes are non-diagnostic in the setting of normal perfusion images. 4) Frequent PVCs during recovery. 5) No angina during the study. 6) Average exercise tolerane (7.0METs, ANKUR +4%). Target heart rate achieved. Appropriate BP response to exercise. 7) No prior nuclear stress test available for comparison. Dictated by: Miguel Restrepo MD on 07/23/2022 at 12:54 Approved by: Miguel Restrepo MD on 07/23/2022 at 12:57
--- NOTE | 2022-07-22 09:14 | DI.ECHO.S_ITS ---
[facility]---------+ [facility] +---------+ : : [address] : : : : [id number] : : : : Phone: [phone]+ Echocardiogram Report + + :Name: KY KERNS Study Date: 07/22/2022 Height: 69 in : :[facility] ReadingLocation: Weight: 170 lb : : Gender: Male BSA: 1.9 m2 : :: 1945 Age: 76 yrs BP: 162/86 mmHg: :Reason For Study: ATHEROSCLEROTIC HEART DISEASE : :Ordering Physician: CASANDRA, : :ULISSES Performed By: Cat Coates : :Referring: ULISSES GUAJARDO : + + Interpretation Summary The left ventricle is normal in size. The ejection fraction is estimated to be 60-65%. Previous LVEF 65 to 70%. Diastolic parameters suggest a pseudonormalization pattern, consistent with probable elevated filling pressures. The right ventricle is borderline dilated. Right ventricular systolic function is at the lower limits of normal. The left atrium is moderately dilated. A patent foramen ovale is suspected. There is mild to moderate mitral regurgitation. Compared to the prior echo study, there has been an increase in the severity of mitral regurgitation. There is a bioprosthetic aortic valve. The prosthetic aortic valve is well-seated. The peak aortic velocity on the previous exam was 2.84 m/sec. sev ratio: 0.36 The aortic valve mean gradient is 14.4 mmHg. The peak aortic velocity is 2.56 m/sec. The peak aortic velocity on the previous exam was 2.84 m/sec. There is mild tricuspid regurgitation. Compared to the prior echo exam, there has been no change in TR severity. The right ventricular systolic pressure is estimated to be at least 40 mmHg based on an estimated right atrial pressure of 3 mm Hg. There is mild luminal irregularity and echogenicity in the abdominal aorta, suggestive of aortic atherosclerotic disease. Mild atherosclerotic plaque(s) in the aortic arch. Procedure: A two-dimensional transthoracic echocardiogram with color flow and Doppler was performed. The study quality was technically adequate. Comparison is made with the echocardiogram of 09/06/2019. The patient was in sinus rhythm with heart rates between 45-67 bpm during the exam. The patient had occasional PVCs during the exam. Left Ventricle: The left ventricle is normal in size. Proximal septal thickening is noted. There is no thrombus. The ejection fraction is estimated to be 60-65%. There are no focal wall motion abnormalities. Diastolic parameters suggest a pseudonormalization pattern, consistent with probable elevated filling pressures. Right Ventricle: The right ventricle is borderline dilated. Right ventricular systolic function is at the lower limits of normal. Atria: The left atrium is moderately dilated. The left atrium has mildly increased in size since the prior echo exam. The right atrium is mildly dilated. A patent foramen ovale is suspected. Mitral Valve: The mitral valve leaflets are mildly calcified. The mitral valve chordae are thickened and/or calcified. There is mild mitral annular calcification. There is mild to moderate mitral regurgitation. Compared to the prior echo study, there has been an increase in the severity of mitral regurgitation. Aortic Valve: There is a bioprosthetic aortic valve. The prosthetic aortic valve is well-seated. The peak aortic velocity is 2.56 m/sec. The aortic valve mean gradient is 14.4 mmHg. The peak aortic velocity on the previous exam was 2.84 m/sec. There is trace aortic regurgitation. Tricuspid Valve: Tricuspid leaflets are thickened. There is mild tricuspid regurgitation. The right ventricular systolic pressure is estimated to be at least 40 mmHg based on an estimated right atrial pressure of 3 mm Hg. Compared to the prior echo exam, there has been no change in TR severity. Pulmonic Valve: The pulmonic valve is not well seen, but is grossly normal. There is mild to moderate pulmonic regurgitation. Great Vessels: The dimensions of the ascending aorta are normal. There is mild luminal irregularity and echogenicity in the abdominal aorta, suggestive of aortic atherosclerotic disease. Mild atherosclerotic plaque(s) in the aortic arch. The IVC is of normal diameter and collapses greater than 50% with a sniff. This suggests a low right atrial pressure of 3 mm Hg. Pericardium/ Pleura There is no pericardial effusion. There is no pleural effusion. MMode/2D Measurements & Calculations LVIDd: 4.6 cm LVOT diam: 2.4 cm LVIDs: 2.8 cm asc Aorta Diam: 3.8 cm FS: 39.9 % IVSd: 0.82 cm LVPWd: 1.1 cm LV cr. diameter/BSA (cm/m^2): 2.4 LV sys. diameter/BSA (cm/m^2): 1.4 LA A2 area: 23.4 cm2 RA long axis: 5.8 cm LA A4 area: 22.3 cm2 RA area: 21.3 cm2 LA length (vol): 5.7 cm RA vol: 66.7 ml LA vol: 77.1 ml RA : 34.6 ml/m2 LA vol index: 40.0 ml/m2 IVC diam: 0.94 cm RVD1 (basal): 4.1 cm TAPSE: 1.7 cm Doppler Measurements & Calculations Ao V2 max: 256.2 cm/sec LVOT Max Frank: 83.8 cm/sec Ao V2 mean: 180.4 cm/sec LV V1 max P.8 mmHg Ao max P.3 mmHg LV V1 VTI: 22.1 cm Ao mean P.4 mmHg MINGO(I,D): 1.6 cm2 Ao V2 VTI: 60.8 cm MINGO(V,D): 1.4 cm2 sev ratio: 0.36 MINGO indexed to BSA (cm^2/m^2): 0.83 MV E max frank: 79.8 cm/sec TR max frank: 305.0 cm/sec MV A max frank: 30.1 cm/sec TR max P.2 mmHg MV E/A: 2.7 PA V2 max: 89.8 cm/sec Med Peak E' Frank: 5.4 cm/sec PA V2 mean: 63.7 cm/sec E/E' med: 14.6 PA mean P.9 mmHg Lat Peak E' Frank: 10.7 cm/sec PA pr(Accel): 49.9 mmHg E/E' lat: 7.5 E/e' average: 11.1 MV dec time: 0.25 sec SV(LVOT): 97.7 ml Reading Physician:05:47 PM
[2022-07-22 10:42] LABS: COVID19 -Nasal RAPID Negative (Negative)
== END ==
PROVIDERS: PCP Internal Medicine; Referring Provider Internal Medicine Cardiovascular Disease; Visit Provider Internal Medicine Cardiovascular Disease
DX: I65.23 Occlusion and stenosis of bilateral carotid arteries (principal); I08.1 Rheumatic disorders of both mitral and tricuspid valves; I25.10 Atherosclerotic heart disease of native coronary artery without angina pectoris; R53.83 Other fatigue; Z95.5 Presence of coronary angioplasty implant and graft; Z95.2 Presence of prosthetic heart valve; Z20.822 Contact with and (suspected) exposure to COVID-19
CPT/HCPCS: 78452; 87635; 93017; 93306; 93880; A9502

== ENCOUNTER → 2023-11-01 10:05 | Outpatient (CLI) | payer MEDICARE, SELFPAY ==
[2023-11-01 12:08] LABS: Alanine Aminotransferase 28 IU/L (<50); Albumin 4.2 g/dL (3.5-5.0); Albumin Globulin Ratio 1.6 (1.0-2.8); Alkaline Phosphatase 47 U/L (38-126); Aspartate Aminotransferase 30 IU/L (17-59); BUN Creatinine Ratio 17.5 (6-22); Bilirubin Total 0.6 mg/dL (0.2-1.3); Blood Urea Nitrogen 18 mg/dL (9-20); Calcium 9.3 mg/dL (8.4-10.2); Carbon Dioxide 30 mmol/L (22-32); Chloride 103 mmol/L (98-107); Cholesterol 91 mg/dL (140-199); Estimated Glomerular Filt Rate > 60 mL/min (>60); Globulin 2.7 g/dL (1.7-4.1); Glucose 101 mg/dL (80-110); HDL Cholesterol 31 mg/dL (40-60); HEMOLYSIS < 15 (0-50); LDL Cholesterol Calculated 48 mg/dL (<100); Potassium 4.7 mmol/L (3.4-5.1); Sodium 135 mmol/L (137-145); Total Protein 6.9 g/dL (6.3-8.2); Triglycerides 62 mg/dL (35-150)
== END ==
PROVIDERS: PCP Internal Medicine; Referring Provider Internal Medicine Cardiovascular Disease; Visit Provider Internal Medicine Cardiovascular Disease
DX: E78.5 Hyperlipidemia, unspecified (principal)
CPT/HCPCS: 36415; 80053; 80061

== ENCOUNTER → 2024-04-23 10:25 | Outpatient (CLI) | payer MEDICARE, SELFPAY ==
--- NOTE | 2024-04-23 10:26 | DI.ECHO.S_ITS ---
[facility]---------+ [facility] : : [id number] : [place] [address] : : [id number] : : Phone: [phone] Echocardiogram Report + + :Name: KY KERNS Study Date: 04/23/2024 Height: 70 in : :[facility] ReadingLocation: Weight: 160 lb : : Gender: Male BSA: 1.9 m2 : :: 1945 Age: 78 yrs BP: 164/78 mmHg: :Reason For Study: S/P AVR : :Ordering Physician: DANIELLE, : :RENATO Cobian Performed By: Zhen Rosario : :Referring: RENATO SANTOS W : + + Interpretation Summary Interpretation Summary The left ventricle is normal in size. The ejection fraction is estimated to be 65-70%. Diastolic parameters suggest a restrictive filling pattern consistent with probable significantly elevated filling pressures. Previously pseudonormalization type of diastolic dysfunction. The right ventricle is at the upper limits of normal in size. The right ventricular systolic function is normal. A patent foramen ovale is suspected. Unchanged. There is mild to moderate mitral regurgitation. No significant change in MR. There is a bioprosthetic aortic valve. The prosthetic aortic valve is well-seated. There is mild aortic regurgitation. The peak aortic velocity is 2.97 m/sec. The aortic valve mean gradient is 19.0 mmHg. The peak aortic velocity on the previous exam was 2.84 m/sec. There is no hemodynamically significant valvular aortic stenosis. There is moderate tricuspid regurgitation. Compared to the prior echo exam, there has been an increase in TR severity. The right ventricular systolic pressure is estimated to be at least 57 mmHg based on an estimated right atrial pressure of 3 mm Hg. Previously mild TR and PASP 40 mmHg. Compared to the prior echo exam, there has been an increase in the severity of pulmonary hypertension. There is moderate pulmonic regurgitation. Procedure: A two-dimensional transthoracic echocardiogram with color flow and Doppler was performed. The study quality was technically good. There is no prior echocardiogram noted for this patient. The patient was in normal sinus rhythm during the exam. Left Ventricle: The left ventricle is normal in size. Left ventricular wall thickness is mildly increased. There is no ventricular septal defect visualized. The ejection fraction is estimated to be 65-70%. There has been no significant change since the previous exam. There are no focal wall motion abnormalities. Diastolic parameters suggest a restrictive filling pattern consistent with probable significantly elevated filling pressures. Previously pseudonormalization type of diastolic dysfunction. Right Ventricle: The right ventricle is at the upper limits of normal in size. The right ventricular systolic function is normal. Atria: The left atrium is severely dilated. The left atrium has mildly increased in size since the prior echo exam. Right atrial size is normal. A patent foramen ovale is suspected. There has been no significant change since the previous study. Mitral Valve: There is mild mitral annular calcification. The mitral valve leaflets appear mildly thickened, but open well. There is mild to moderate mitral regurgitation. There has been no significant change since the previous study. Aortic Valve: There is a bioprosthetic aortic valve. The prosthetic aortic valve is well-seated. The peak aortic velocity is 2.97 m/sec. The aortic valve mean gradient is 19.0 mmHg. The peak aortic velocity on the previous exam was 2.84 m/sec. There is mild aortic regurgitation. Tricuspid Valve: The tricuspid valve is normal. There is moderate tricuspid regurgitation. The right ventricular systolic pressure is estimated to be at least 57 mmHg based on an estimated right atrial pressure of 3 mm Hg. Compared to the prior echo exam, there has been no change in TR severity. Compared to the prior echo exam, there has been an increase in the severity of pulmonary hypertension. Pulmonic Valve: The pulmonic valve is not well seen, but is grossly normal. There is moderate pulmonic regurgitation. Great Vessels: The ascending aorta is at the upper limits of normal in size. The pulmonary artery is normal size. The IVC is of normal diameter and collapses greater than 50% with a sniff. This suggests a low right atrial pressure of 3 mm Hg. Pericardium/ Pleura There is no pericardial effusion. There is no pleural effusion. MMode/2D Measurements & Calculations LVIDd: 3.9 cm LVOT diam: 1.9 cm LVIDs: 2.7 cm asc Aorta Diam: 3.8 cm FS: 32.1 % EPSS: 0.28 cm IVSd: 1.2 cm LVPWd: 1.2 cm LV cr. diameter/BSA (cm/m^2): 2.1 LV sys. diameter/BSA (cm/m^2): 1.4 LA A2 area: 28.1 cm2 RA long axis: 5.4 cm LA A4 area: 25.8 cm2 RA area: 17.8 cm2 LA length (vol): 5.9 cm RA vol: 50.5 ml LA vol: 103.9 ml RA : 26.6 ml/m2 LA vol index: 54.7 ml/m2 IVC diam: 1.6 cm RVD1 (basal): 3.9 cm RVD2 (mid): 2.8 cm TAPSE: 2.1 cm Doppler Measurements & Calculations Ao V2 max: 296.6 cm/sec LVOT Max Frank: 155.4 cm/sec Ao V2 mean: 200.8 cm/sec LV V1 max P.7 mmHg Ao max P.2 mmHg LV V1 VTI: 39.5 cm Ao mean P.0 mmHg MINGO(I,D): 1.5 cm2 Ao V2 VTI: 69.6 cm MINGO(V,D): 1.4 cm2 sev ratio: 0.57 MINGO indexed to BSA (cm^2/m^2): 0.81 MV E max frank: 94.6 cm/sec TR max frank: 366.1 cm/sec MV A max frank: 24.3 cm/sec TR max P.6 mmHg MV E/A: 3.9 PA V2 max: 83.3 cm/sec Med Peak E' Frank: 5.2 cm/sec PA V2 mean: 56.7 cm/sec E/E' med: 18.2 PA mean P.5 mmHg Lat Peak E' Frank: 10.5 cm/sec PA pr(Accel): 41.3 mmHg E/E' lat: 9.0 E/e' average: 13.6 MV dec time: 0.15 sec SV(LVOT): 107.2 ml Reading Physician:05:00 PM
--- NOTE | 2024-04-23 10:26 | DI.US.S_ITS ---
PROCEDURE: US CAROTID DOPPLER BI INDICATIONS: S/P AVR / BILATERAL CAROTID ARTERY STENOSIS TECHNIQUE: Color and pulse Doppler interrogation was performed of both carotid systems, with image documentation and velocity measurements. COMPARISON: [facility], , CAROTID DOPPLER BI, 07/22/2022, 9:23. FINDINGS: Stenosis calculations are based on SRU (Society of Radiologists in Ultrasound) criteria. Right side: Brachial blood pressure: 157/76 mm Hg. Common carotid artery peak systolic velocity: 77 cm/sec. Internal carotid artery peak systolic velocity: 158 cm/sec. (Previously 103 cm/sec). Internal carotid artery end diastolic velocity: 36 cm/sec. External carotid artery peak systolic velocity: 84 cm/sec. ICA/CCA peak systolic ratio: 2.1. (Previously 1.9). Shanks scale imaging description: Mild calcified plaque Percent internal carotid artery stenosis: 50-69% stenosis. Vertebral artery: Flow direction is antegrade. Left side: Brachial blood pressure: 158/78 mm Hg. Common carotid artery peak systolic velocity: 86 cm/sec. Internal carotid artery peak systolic velocity: 163 cm/sec. (Previously 65 cm/sec). Internal carotid artery end diastolic velocity: 46 cm/sec. External carotid artery peak systolic velocity: 89 cm/sec. ICA/CCA peak systolic ratio: 1.9. (Previously 1.6). Shanks scale imaging description: Mild calcified plaque Percent internal carotid artery stenosis: 50-69% stenosis based on peak systolic velocity . Vertebral artery: Flow direction is antegrade. IMPRESSION: 1. Right ICA: 50-69% stenosis. Increased. 2. Left ICA: 50-69% stenosis. Increased. 3. Antegrade flow in the bilateral vertebral arteries. Dictated by: Marvin Aranda M.D. on 04/23/2024 at 15:44 Approved by: Marvin Aranda M.D. on 04/23/2024 at 15:49
== END ==
PROVIDERS: PCP Internal Medicine; Referring Provider Nurse Practitioner; Visit Provider Nurse Practitioner
DX: I65.23 Occlusion and stenosis of bilateral carotid arteries (principal); Z95.2 Presence of prosthetic heart valve; I08.3 Combined rheumatic disorders of mitral, aortic and tricuspid valves
CPT/HCPCS: 93306; 93880

== ENCOUNTER → 2024-07-28 12:23 | Outpatient (CLI) | payer MEDICARE, OTHER, SELFPAY ==
[2024-07-28 13:14] LABS: COVID-19 CEPHEID 4-PLEX PCR Negative (Negative); Influenza A - CEPHEID Flu A NEGATIVE (NEGATIVE); Influenza B - CEPHEID Flu B NEGATIVE (NEGATIVE); Respiratory Syncytial Virus Negative (Negative)
== END ==
PROVIDERS: PCP Internal Medicine; Visit Provider Physician Assistant
DX: R05.1 Acute cough (principal)
CPT/HCPCS: 0241U

== ENCOUNTER → 2024-07-28 12:46 | Outpatient (CLI) | payer MEDICARE, SELFPAY ==
--- NOTE | 2024-07-28 12:47 | DI.RAD.S_ITS ---
PROCEDURE: XR CHEST 2V INDICATIONS: Cough chest congestion TECHNIQUE: 2 views of the chest were acquired. COMPARISON: [facility], CR, XR CHEST 2V, 06/03/2020, 15:07. FINDINGS: Surgical changes and devices: Sternotomy wires and a cardiac valve prosthesis can be seen. Lungs and pleura: Lungs are clear. No pleural effusions or pneumothorax. Mediastinum: The cardiac contours are within normal limits. The aorta demonstrates calcification and tortuosity. Bones and chest wall: No suspicious bony abnormalities. Age-appropriate bony degenerative changes are seen. Soft tissues appear unremarkable. IMPRESSION: No focal infiltrates are seen. Postoperative and degenerative changes are seen. Dictated by: Denis Arce M.D. on 07/28/2024 at 12:09 Approved by: Denis Arce M.D. on 07/28/2024 at 12:10
== END ==
PROVIDERS: PCP Internal Medicine; Referring Provider Physician Assistant; Visit Provider Physician Assistant
DX: J34.89 Other specified disorders of nose and nasal sinuses (principal); R09.89 Other specified symptoms and signs involving the circulatory and respiratory systems; R09.81 Nasal congestion; R05.1 Acute cough
CPT/HCPCS: 0241U; 71046

== ENCOUNTER → 2024-10-30 09:02 | Outpatient (CLI) | payer MEDICARE, OTHER, SELFPAY ==
[2024-10-30 10:02] LABS: Alanine Aminotransferase 25 IU/L (<50); Albumin 4.6 g/dL (3.5-5.0); Albumin Globulin Ratio 1.6 (1.0-2.8); Alkaline Phosphatase 62 U/L (38-126); Aspartate Aminotransferase 30 IU/L (17-59); BUN Creatinine Ratio 16.8 (6-22); Bilirubin Total 0.6 mg/dL (0.2-1.3); Blood Urea Nitrogen 19 mg/dL (9-20); Calcium 9.7 mg/dL (8.4-10.2); Carbon Dioxide 23 mmol/L (22-32); Chloride 101 mmol/L (98-107); Cholesterol 95 mg/dL (140-199); Estimated Glomerular Filt Rate > 60 mL/min (>60); Globulin 2.9 g/dL (1.7-4.1); Glucose 104 mg/dL (80-110); HDL Cholesterol 29 mg/dL (40-60); HEMOLYSIS < 15 (0-50); LDL Cholesterol Calculated 43 mg/dL (<100); Potassium 4.8 mmol/L (3.4-5.1); Sodium 134 mmol/L (137-145); Total Protein 7.5 g/dL (6.3-8.2); Triglycerides 115 mg/dL (35-150)
== END ==
PROVIDERS: PCP Internal Medicine; Referring Provider Nurse Practitioner; Visit Provider Nurse Practitioner
DX: I10 Essential (primary) hypertension (principal); E78.5 Hyperlipidemia, unspecified
CPT/HCPCS: 36415; 80053; 80061

== ENCOUNTER → 2025-05-24 08:22 | Outpatient (CLI) | payer MEDICARE, OTHER, SELFPAY ==
[2025-05-24 10:36] LABS: Cholesterol 99 mg/dL (140-199); HDL Cholesterol 35 mg/dL (40-60); Triglycerides 83 mg/dL (35-150)
== END ==
LOC: LAB 08:23
PROVIDERS: PCP Internal Medicine; Referring Provider Internal Medicine Cardiovascular Disease; Visit Provider Internal Medicine Cardiovascular Disease
DX: E78.5 Hyperlipidemia, unspecified (principal)
CPT/HCPCS: 36415; 80061